=== PATIENT | female | born 1965 | race Caucasian/White ===

== ENCOUNTER 2016-03-08 20:48 | Emergency (ER) | payer OTHER ==
--- NOTE | 2016-03-08 21:31 | PDOC ---
History of Present Illness - General History Source: Patient Exam Limitations: No Limitations - History of Present Illness Initial Comments: 03/08/16 21:46 The patient is a 50 year old female with no significant past medical history who presents to the ED with 6 days of progressively worsening SOB. Patient reports she was seen in urgent care earlier today, where she was told to come into the ER. She states her SOB is progressively getting worse with associated URI symptoms including sore throat and dry cough. She endorses chest pain when she coughs. She also has complaints of nausea, but no vomiting. Patient reports her SOB is worsened with exertion and states she is normally not active, but she notes she is unable to even make her bed without having difficulty breathing. She denies history of asthma or any respiratory/cardiac history. She denies lightheadedness, dizziness, diaphoresis, jaw pain, shoulder pain, arm pain, back pain, or leg swelling. She also denies smoking and oral contraceptive use. The patient denies fever, chills, abdominal pain and diarrhea. Allergies: NKDA Social History: Denies alcohol, tobacco, or drug use. Past Surgical History: None reported PCP: Dr. Marito Ervin <Etta Trinidad - Last Filed: 03/08/16 21:46> - General History Source: Patient <PatriciaYomairaGurdeep - Last Filed: 03/08/16 23:01> - General Chief Complaint: Shortness of Breath Stated Complaint: PAIN Time Seen by Provider: 03/08/16 21:15 Past History <Etta Trinidad - Last Filed: 03/08/16 21:46> - Psycho/Social/Smoking Cessation Hx Suicidal Ideation: No Smoking History: Never smoked <Gurdeep Arauz - Last Filed: 03/08/16 23:01> - Past Medical History Allergies/Adverse Reactions: Allergies Allergy/AdvReac Type Severity Reaction Status Date / Time No Known Allergies Allergy Verified 03/08/16 21:06 Home Medications: Ambulatory Orders Albuterol Sulfate [Proair Respiclick] 90 mcg IH ASDIR 03/08/16 Azithromycin [Zithromax -] 250 mg PO DAILY 03/08/16 Benzonatate [Tessalon Pearls -] 100 mg PO TID PRN 03/08/16 Prednisone [Deltasone -] 20 mg PO DAILY 03/08/16 Promethazine/Phenyleph/Codeine [Phenergan VC+Codeine Syrup] 5 ml PO QID #60 ml MDD 4 03/08/16 Pseudoephedrine HCl [Sudafed] 30 mg PO Q6H #30 tablet 03/08/16 Review of Systems - Review of Systems Able to Perform ROS?: Yes Comments:: 03/08/16 21:46 CONSTITUTIONAL: Absent: fever, chills, diaphoresis, generalized weakness, malaise, loss of appetite HEENT: +sore throat Absent: rhinorrhea, nasal congestion, throat swelling, difficulty swallowing, mouth swelling, ear pain, eye pain, visual Changes CARDIOVASCULAR: +chest pain Absent: syncope, palpitations, irregular heart rate, lightheadedness , peripheral edema RESPIRATORY: +cough, shortness of breath, dyspnea with exertion Absent: orthopnea, wheezing, stridor, hemoptysis GASTROINTESTINAL: +nausea Absent: abdominal pain, abdominal distension, vomiting, diarrhea, constipation, melena, hematochezia GENITOURINARY: Absent: dysuria, frequency, urgency, hesitancy, hematuria, flank pain, genital pain MUSCULOSKELETAL: Absent: myalgia, arthralgia, joint swelling SKIN: Absent: rash, itching, pallor NEUROLOGIC: Absent: headache, focal weakness or paresthesias, dizziness, unsteady gait, seizure, mental status changes, bladder or bowel incontinence. <Etta Trinidad - Last Filed: 03/08/16 21:46> *Physical Exam - Vital Signs Last Vital Signs Temp Pulse Resp BP Pulse Ox 98 F 58 L 18 130/78 98 03/08/16 21:08 03/08/16 21:08 03/08/16 21:08 03/08/16 21:08 03/08/16 21:08 - Physical Exam Comments: 03/08/16 21:46 GENERAL: Well developed, well nourished. Awake and alert. No acute distress. HEENT: Normocephalic, atraumatic. PERRLA, EOMI. No conjunctival pallor. Sclera are non- icteric. Nasal congestion. Moist mucous membranes. Oropharynx is clear. NECK: Supple. Full ROM. No JVD. Carotid pulses 2+ and symmetric, without bruits. No thyromegaly. No lymphadenopathy. CARDIOVASCULAR: Regular rate and rhythm. No murmurs, rubs, or gallops. Distal pulses are 2+ and symmetric. PULMONARY: No evidence of respiratory distress. Lungs clear to auscultation bilaterally. No wheezing, rales or rhonchi. Paroxysmal coughing. ABDOMINAL: Soft. Non-tender. Non-distended. No rebound or guarding. No organomegaly. Normoactive bowel sounds. MUSCULOSKELETAL Normal range of motion at all joints. No bony deformities or tenderness. No CVA tenderness. EXTREMITIES: No cyanosis. No clubbing. No edema. No calf tenderness. SKIN: Warm and dry. Normal capillary refill. No rashes. No jaundice. NEUROLOGICAL: Alert, awake, appropriate. Cranial nerves 2-12 intact. Moving all extremities. No gross focal neurological deficits. PSYCHIATRIC: Cooperative. Good eye contact. Appropriate mood and affect. <Etta Trinidad - Last Filed: 03/08/16 21:46> - Vital Signs Last Vital Signs Temp Pulse Resp BP Pulse Ox 98 F 58 L 18 130/78 98 03/08/16 21:08 03/08/16 21:08 03/08/16 21:08 03/08/16 21:08 03/08/16 21:08 <Gurdeep Arauz - Last Filed: 03/08/16 23:01> Medical Decision Making - Medical Decision Making 03/08/16 23:00 Dr. Arauz: The scribe's documentation has been prepared under my direction and personally reviewed by me in its entirery. I confirm that the note above accurately reflects all work, treatment, procedures, and medical decision making performed by me. Patient feels better after treatment in the department. Patient to continue all he new prescriptions to be transmitted to her pharmacy <Gurdeep Arauz - Last Filed: 03/08/16 23:01> *DC/Admit/Observation/Transfer - Attestations Scribe Attestion: 03/08/16 21:46 Documentation prepared by Etta Trinidad, acting as medical reception specialist for Gurdeep Arauz MD <Etta Trinidad - Last Filed: 03/08/16 21:46> - Discharge Dispostion Admit: No <Gurdeep Arauz - Last Filed: 03/08/16 23:01> Diagnosis at time of Disposition: Cough Upper respiratory infection Qualifiers: URI type: unspecified URI Qualified Code(s): J06.9 - Acute upper respiratory infection, unspecified - Discharge Dispostion Disposition: HOME Condition at time of disposition: Stable - Prescriptions Prescriptions: Promethazine/Phenyleph/Codeine [Phenergan VC+Codeine Syrup] 5 ml PO QID #60 ml MDD 4 Pseudoephedrine HCl [Sudafed] 30 mg PO Q6H #30 tablet - Referrals Referrals: Marito Ervin I [Primary Care Provider] - - Patient Instructions Printed Discharge Instructions: DI for Cough -- Adult, DI for Viral Upper Respiratory Infection -- Adult
[2016-03-08] MEDS ORDERED: PSEUDOEPHEDRINE HCL 30 MG TABLET PO STA (21:39)
[2016-03-08] MEDS ORDERED: PSEUDOEPHEDRINE HCL 60 MG TABLET ONE (21:42)
[2016-03-08 21:43] VITALS: BP 130/78; PULSE 58; TEMP 98; BMI 27.3
== END 2016-03-08 23:18 | disposition home or self-care (01) ==
LOC: JER 20:48
DX: J06.9 Acute upper respiratory infection, unspecified (principal); R05 Cough
CPT/HCPCS: 36415; 71020-TC; 85379; 99281-25